=== PATIENT | female | born 1945 | race Two or more races ===

== ENCOUNTER 2017-07-07 19:21 | Inpatient (IN) | payer OTHER ==
[~2017-07-07] VITALS: Ht 154.9 cm; Wt 64.3 kg
[2017-07-07 20:18] LABS: Neutrophils # (auto) 14.4 uL; Red Cell Distribution Width 15.7 % (11.8-14.3)
[2017-07-07 20:20] LABS: Basophils # (auto) 0 uL; Basophils % (auto) 0.3 % (0.0-2.0); Eosinophils # (auto) 0.1 uL; Eosinophils % (auto) 0.8 % (0.0-7.0); Hemoglobin 11.1 g/dL (12.2-16.2); Lymphocytes % (auto) 11.3 % (10.0-50.0); Mean Corpuscular Hemoglobin 25.8 pg (28.0-32.0); Mean Corpuscular Hgb Conc. 33.5 g/dL (32.0-36.0); Mean Corpuscular Volume 77.1 fL (80.0-100.0); Monocytes # (auto) 0.7 uL; Monocytes % (auto) 4.3 % (0.0-12.0); Neutrophils % (auto) 83.3 % (37.0-80.0); Nucleated Red Blood Cells % 0.1 %; Red Blood Cells 4.28 10^6/uL (4.0-5.20); White Blood Cell 17.3 10^3/uL (4.4-10.8)
[2017-07-07 20:38] LABS: BUN/Creatinine Ratio 7.9; Bilirubin, Total 0.3 mg/dL (0.2-1.0); Calcium 6.6 mg/dL (8.5-10.1); Magnesium 1.7 mg/dL (1.6-2.6); Potassium 3.1 mmol/L (3.5-5.1); Total Protein 5.5 g/dL (6.4-8.2)
[2017-07-07 20:44] LABS: Platelet Count (auto) 95 10^3/uL (140-450)
[2017-07-07 20:45] LABS: INR 0.97 (0.9-1.15); Partial Thromboplastin Time 32.3 sec (22.64-33.71); Prothrombin Time 10.6 sec (9.37-12.3)
[2017-07-07] MEDS ORDERED: POTASSIUM CHL 20 Meq TABLET PO ONE (21:00)
[2017-07-07] MEDS ORDERED: SODIUM CHLORIDE 0.9% 1,000 ML IV ONE (21:00)
[2017-07-07] MEDS ORDERED: cefTRIAXone 1GM/10ml IVPUSH 10 ML IV ONE (21:00)
[2017-07-08] VITALS (8 sets, daily range): BP systolic 128–164; BP diastolic 65–96
[2017-07-08] MEDS ORDERED: ACETAMINOPHEN 325 MG TAB PO PRN (01:00)
[2017-07-08] MEDS ORDERED: MORPHINE SULF INJ 2 MG/ML SYRINGE 1ML IV PRN (01:00)
[2017-07-08] MEDS ORDERED: ONDANSETRON HCL 4 MG/2 ML VIAL IV PRN (01:00)
[2017-07-08] MEDS ORDERED: NITROGLYCERIN 0.4 MG SL TAB SL PRN (01:00)
[2017-07-08] MEDS ORDERED: TEMAZEPAM 15 MG CAP PO PRN (01:00)
[2017-07-08] MEDS ORDERED: HYDROcodone-ACET 5/325MG TAB PO PRN (01:00)
[2017-07-08] MEDS ORDERED: DEXTROSE (50%) 50ML SYRG IV PRN (01:00)
[2017-07-08] MEDS: InsuLIN REG 1unit/0.01ml Soln (100units/ml) SC SCH ×3 (04:12→18:00)
[2017-07-08] MEDS: ACCU-CHEK COMFORT CURVE STRIP VI SCH ×3 (04:12→18:29)
[2017-07-08] MEDS ORDERED: POTASSIUM CHL 20 Meq TABLET PO ONE (08:30)
[2017-07-08] MEDS: ASPirin 81 mg TAB PO SCH (09:33)
[2017-07-08] MEDS: APIXABAN 5 MG TAB PO SCH ×2 (09:34→23:02)
[2017-07-08] MEDS: ISOSORBIDE MONONITRATE 60 MG TAB PO SCH (09:35)
[2017-07-08] MEDS: PANTOPRAZOLE 40 MG TAB PO SCH (09:36)
[2017-07-08] MEDS ORDERED: PRASUGREL HCL 10 MG TAB PO SCH (10:00)
[2017-07-08] MEDS ORDERED: DIGOXIN 0.125 MG TAB PO SCH (10:00)
[2017-07-08] MEDS ORDERED: METOPROLOL TARTRATE 25 MG TAB PO SCH (10:00)
[2017-07-08] MEDS: METOPROLOL TARTRATE 25 MG TAB PO SCH ×2 (14:21→23:04)
[2017-07-08] MEDS ORDERED: ATORVASTATIN 20 MG TAB PO SCH (22:00)
[2017-07-08] MEDS: ATORVASTATIN 20 MG TAB PO SCH (23:04)
[2017-07-08] MEDS: cefTRIAXone 1GM/10ml IVPUSH 10 ML IV SCH (23:05)
[2017-07-09] VITALS (10 sets, daily range): BP systolic 134–205; BP diastolic 49–102
[2017-07-09] MEDS: ACCU-CHEK COMFORT CURVE STRIP VI SCH ×5 (00:07→23:10)
[2017-07-09] MEDS ORDERED: FUROSEMIDE 40 MG TAB PO ONE (01:45)
[2017-07-09] MEDS: LOPERAMIDE HCL 2 MG CAP PO PRN ×2 (01:56→03:40)
[2017-07-09] MEDS ORDERED: ASPI-231 PO (02:28)
[2017-07-09] MEDS ORDERED: METO25TA5 PO (02:28)
[2017-07-09] MEDS ORDERED: DIGO0.1262 PO (02:28)
[2017-07-09] MEDS ORDERED: GLIP-115 PO (02:28)
[2017-07-09] MEDS ORDERED: ALBUAER3 IN (02:28)
[2017-07-09] MEDS ORDERED: FURO40TA4 PO (02:28)
[2017-07-09] MEDS ORDERED: ISOS30TA4 PO (02:28)
[2017-07-09] MEDS ORDERED: SODI650T PO (02:28)
[2017-07-09] MEDS ORDERED: APIX5TAB OR (02:28)
[2017-07-09] MEDS: ISOSORBIDE MONONITRATE 60 MG TAB PO SCH (03:39)
[2017-07-09] MEDS: PANTOPRAZOLE 40 MG TAB PO SCH (03:39)
[2017-07-09] MEDS: glipiZIDE 5 MG TAB PO SCH ×2 (06:19→17:49)
[2017-07-09] MEDS: FUROSEMIDE 40 MG TAB PO SCH (06:19)
[2017-07-09] MEDS: METOPROLOL TARTRATE 25 MG TAB PO SCH ×3 (06:19→22:29)
[2017-07-09] MEDS: InsuLIN REG 1unit/0.01ml Soln (100units/ml) SC SCH ×5 (06:21→23:11)
[2017-07-09 06:30] LABS: Basophils # (auto) 0.1 uL; Eosinophils # (auto) 0.2 uL; Lymphocytes # (auto) 3.3 uL; Monocytes # (auto) 0.7 uL
[2017-07-09 06:34] LABS: Basophils % (auto) 0.7 % (0.0-2.0); Eosinophils % (auto) 1.9 % (0.0-7.0); Hematocrit 29.6 % (36.0-46.0); Hemoglobin 9.8 g/dL (12.2-16.2); Lymphocytes % (auto) 25.8 % (10.0-50.0); Mean Corpuscular Hemoglobin 25.7 pg (28.0-32.0); Mean Corpuscular Hgb Conc. 33.2 g/dL (32.0-36.0); Mean Corpuscular Volume 77.4 fL (80.0-100.0); Monocytes % (auto) 5.5 % (0.0-12.0); Neutrophils # (auto) 8.5 uL; Neutrophils % (auto) 66.1 % (37.0-80.0); Platelet Count (auto) 172 10^3/uL (140-450); Red Blood Cells 3.83 10^6/uL (4.0-5.20); Red Cell Distribution Width 15.8 % (11.8-14.3); White Blood Cell 12.8 10^3/uL (4.4-10.8)
[2017-07-09 07:02] LABS: Albumin 2.3 g/dL (3.4-5.0); BUN/Creatinine Ratio 8.5; Bilirubin, Total 0.3 mg/dL (0.2-1.0); Calcium 7.6 mg/dL (8.5-10.1); Potassium 4.8 mmol/L (3.5-5.1); Total Protein 6.2 g/dL (6.4-8.2)
[2017-07-09] MEDS: hydrALAZINE HCL 20 MG/ML VL IV PRN ×3 (09:09→22:23)
[2017-07-09] MEDS ORDERED: SODIUM CHL 0.9% 1000 ML BAG XX ONE (09:30)
[2017-07-09] MEDS ORDERED: EPOETIN ALFA 2,000 UNIT/1 ML VIAL IV ONE (09:30)
[2017-07-09] MEDS ORDERED: EPOETIN ALFA 3,000 UNIT/1 ML VIAL IV ONE (10:00)
[2017-07-09] MEDS: ASPirin 81 mg TAB PO SCH (10:06)
[2017-07-09] MEDS: APIXABAN 5 MG TAB PO SCH ×2 (10:06→22:31)
[2017-07-09] MEDS: SODIUM BICARBONATE 650 MG TAB PO SCH ×2 (10:06→22:31)
[2017-07-09] MEDS ORDERED: CATHFLO ACTIVASE (ALTEPLASE) 2 MG VIAL IV ONE (12:30)
[2017-07-09] MEDS: LORazepam 2MG/ML-1ML VIAL IV ONE ×2 (17:10→17:14)
[2017-07-09] MEDS: cefTRIAXone 1GM/10ml IVPUSH 10 ML IV SCH (21:15)
[2017-07-09] MEDS: ATORVASTATIN 20 MG TAB PO SCH (22:30)
[2017-07-09] MEDS ORDERED: ALPRAZolam 0.25 MG TAB PO PRN (23:00)
[2017-07-09] MEDS ORDERED: ALBUTEROL SULF 2.5 MG/0.5ML(0.5%) NEB SOLN NEB PRN (23:15)
[2017-07-10 01:45] VITALS: BP 95/63
[2017-07-10 04:42] VITALS: BP 121/72
[2017-07-10] MEDS: ACCU-CHEK COMFORT CURVE STRIP VI SCH ×3 (06:20→18:00)
[2017-07-10] MEDS: InsuLIN REG 1unit/0.01ml Soln (100units/ml) SC SCH ×3 (06:30→18:00)
[2017-07-10] MEDS: METOPROLOL TARTRATE 25 MG TAB PO SCH ×3 (06:33→22:24)
[2017-07-10] MEDS: glipiZIDE 5 MG TAB PO SCH ×2 (06:33→18:02)
[2017-07-10] MEDS: hydrALAZINE HCL 20 MG/ML VL IV PRN ×2 (07:11→16:31)
[2017-07-10 08:00] VITALS: BP 151/77
[2017-07-10 09:00] VITALS: BP 151/77
[2017-07-10] MEDS: SODIUM BICARBONATE 650 MG TAB PO SCH ×2 (10:21→22:00)
[2017-07-10] MEDS: PANTOPRAZOLE 40 MG TAB PO SCH (10:23)
[2017-07-10] MEDS: ISOSORBIDE MONONITRATE 60 MG TAB PO SCH (10:23)
[2017-07-10] MEDS: ASPirin 81 mg TAB PO SCH (10:23)
[2017-07-10] MEDS: FUROSEMIDE 40 MG TAB PO SCH (10:24)
[2017-07-10] MEDS: APIXABAN 5 MG TAB PO SCH ×2 (10:24→22:22)
[2017-07-10 12:34] VITALS: BP 148/77
[2017-07-10] MEDS ORDERED: AMIODARONE HCL 200 MG TAB PO ONE (13:45)
[2017-07-10 16:49] VITALS: BP 186/90
[2017-07-10] MEDS ORDERED: MORPHINE SULFATE 4 MG/ML SYR/VIAL IV PRN (20:00)
[2017-07-10] MEDS ORDERED: EPOETIN ALFA 10,000 UNIT/1 ML VIAL IV ONE (20:30)
[2017-07-10] MEDS ORDERED: SODIUM CHL 0.9% 1000 ML BAG XX ONE (20:30)
[2017-07-10] MEDS: cefTRIAXone 1GM/10ml IVPUSH 10 ML IV SCH (21:10)
[2017-07-10] MEDS: AMIODARONE HCL 200 MG TAB PO SCH (22:00)
[2017-07-10] MEDS: ATORVASTATIN 20 MG TAB PO SCH (22:22)
[2017-07-11] MEDS: InsuLIN REG 1unit/0.01ml Soln (100units/ml) SC SCH ×4 (00:01→18:00)
[2017-07-11 05:14] VITALS: BP 141/63
[2017-07-11] MEDS: METOPROLOL TARTRATE 25 MG TAB PO SCH ×2 (06:00→14:00)
[2017-07-11] MEDS: ACCU-CHEK COMFORT CURVE STRIP VI SCH ×4 (06:00→18:20)
[2017-07-11] MEDS: glipiZIDE 5 MG TAB PO SCH ×2 (06:41→18:00)
[2017-07-11 07:31] VITALS: BP 159/89
[2017-07-11] MEDS: APIXABAN 5 MG TAB PO SCH (09:31)
[2017-07-11] MEDS: ASPirin 81 mg TAB PO SCH (09:31)
[2017-07-11] MEDS: SODIUM BICARBONATE 650 MG TAB PO SCH (09:31)
[2017-07-11] MEDS: FUROSEMIDE 40 MG TAB PO SCH (09:31)
[2017-07-11] MEDS: AMIODARONE HCL 200 MG TAB PO SCH (09:31)
[2017-07-11] MEDS: PANTOPRAZOLE 40 MG TAB PO SCH (09:31)
[2017-07-11] MEDS: ISOSORBIDE MONONITRATE 60 MG TAB PO SCH (09:32)
[2017-07-11 11:44] VITALS: BP 166/88
[2017-07-11] MEDS: hydrALAZINE HCL 20 MG/ML VL IV PRN (12:09)
[2017-07-11 17:01] VITALS: BP 194/97
[2017-07-11 17:35] VITALS: BP 111/57
[2017-07-11 18:02] VITALS: BP 111/57
== END 2017-07-11 19:01 | disposition home or self-care (01) | DRG 291 ==
LOC: ER 19:21 → EDBD 19:21 → TELE-EAST 19:22
PROVIDERS: ADMIT Nurse Practitioner; ATTEND Internal Medicine
PROC: 5A1D70Z Performance of Urinary Filtration, Intermittent, Less than 6 Hours Per Day (ICD-10-PCS; principal; 2017-07-09)
PROC: 5A1D70Z Performance of Urinary Filtration, Intermittent, Less than 6 Hours Per Day (ICD-10-PCS; 2017-07-11)
DX: I13.2 Hypertensive heart and chronic kidney disease with heart failure and with stage 5 chronic kidney disease, or end stage renal disease (principal); N18.6 End stage renal disease; E11.22 Type 2 diabetes mellitus with diabetic chronic kidney disease; E11.65 Type 2 diabetes mellitus with hyperglycemia; I50.43 Acute on chronic combined systolic (congestive) and diastolic (congestive) heart failure; I48.91 Unspecified atrial fibrillation; D64.9 Anemia, unspecified; I25.10 Atherosclerotic heart disease of native coronary artery without angina pectoris; E87.6 Hypokalemia; Z99.2 Dependence on renal dialysis; I25.2 Old myocardial infarction; Z79.01 Long term (current) use of anticoagulants; Z79.82 Long term (current) use of aspirin; Z79.899 Other long term (current) drug therapy; Z95.5 Presence of coronary angioplasty implant and graft; Z91.041 Radiographic dye allergy status; Z91.013 Allergy to seafood
CPT/HCPCS: 36415; 36600; 51702; 71045; 80053; 82805; 82962; 83605; 83735; 83880; 84484; 85025; 85379; 85610; 85730; 87040; 87070; 87081; 87205; 87493; 90935; 93005; 93306; 93970; 96361; 96374; J0885; J1642; J1815; J2405; Q4081